=== PATIENT | female | born 1965 | race African-American/Black ===

== ENCOUNTER 2019-01-24 05:21 | Inpatient (IN) | payer OTHER ==
--- NOTE | 2019-01-18 18:22 | PREOPHP ---
DATE OF ADMISSION: 01/24/2019 The patient is to have surgery with Dr. Raf Baird on 01/24/2019. REASON FOR CONSULTATION: Consultation was requested by Dr. Raf Baird for medical evaluation and clearance of a 53-year-old woman about to undergo surgery. Thank you, Dr. Baird, for allowing us to participate in the care of this patient. HISTORY OF PRESENT ILLNESS: Brenda Maldonado, a 53-year-old woman, issues with her back, is current ly being admitted for correction of the above. PAST MEDICAL HISTORY AND PAST SURGICAL HISTORY: She had 3 vaginal deliveries in the past, has had no medical hospitalizations and had total hip replacement of the right hip in 2017. She otherwise has not broken any bones, has been relatively healthy. MEDICATIONS: She is taking the following medications: 1. Amlodipine 10 mg b.i.d. 2. Losartan 50 mg b.i.d. 3. Inderal 10 mg b.i.d. 4. Lipitor 20 mg a day. 5. Gabapentin 300 mg t.i.d. 6. Cymbalta 30 mg daily. 7. Trazodone 50 mg at bedtime. 8. She has stopped her meloxicam 15 mg which she had been taking. ALLERGIES: SHE IS ALLERGIC TO SULFA. SOCIAL HISTORY: The patient is , has 3 sons and 1 grandchild. She does not smoke. Alcohol s ocially. Does not drink coffee. 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 Has no difficulty sleeping at night. FAMILY HISTORY: Both parents are alive. Father is 80, mother 78, both in relatively good health to her knowledge. Seven siblings in good health. One has kidney issues. There is, however, a family h istory of diabetes, hypertension and stroke. REVIEW OF SYSTEMS HEENT: Periodic tension headaches. CARDIORESPIRATORY: Denies any chest pain or shortness of breath. GASTROINTESTINAL: No melena or hematemesis. Does have some hyperacidity symptoms periodically. GENITOURINARY: No urgency, frequency. GYNECOLOGIC: Postmenopause, up-to-date. MUSCULOSKELETAL: Positive for back problems. NEUROPSYCHIATRIC: Unremarkable. GENERAL HEALTH: As above. PHYSICAL EXAMINATION: VITAL SIGNS: The patient's blood pressure was 124/82, pulse was 67 and regular, respirations were 18 , temperature 98.3. Height is 5 feet 4 inches, weight 230.5 pounds. GENERAL: The patient was noted to be a well-developed, well-nourished female, alert and cooperative, in no apparent acute distress, oriented to time, place and person. HEENT: Head was atraumatic. Eyes: Pupils were equal, reactive to light and accommodation. Fundi w ere benign. Tympanic membranes were unremarkable. Nose was negative. Mouth was unremarkable. Fair oral hygiene was present. NECK: Supple without any rigidity. Trachea was midline. Thyroid was within normal limits. Neck ve ins were flat. Carotid pulses were equal. No bruits were heard. BACK: Unremarkable. CHEST: Symmetrical. BREASTS AND AXILLARY: Exam not fully examined, but no obvious masses were noted. LUNGS: Clear to percussion and auscultation. HEART: PMI was 5th intercostal space at the midclavicular line. A regular sinus rhythm was noted. No significant murmurs, rubs or gallops being elicited. ABDOMEN: Soft. Good bowel sounds were noted. No significant organomegaly, masses or tenderness. GENITALIA AND PELVIRECTAL: Up-to-date per cylinder valve repairer. EXTREMITIES: Did not reveal any clubbing, edema or cyanosis. Peripheral pulses were physiologic. SKIN: Moist and warm without any eruptions. No gross lymphadenopathy was noted. NEUROLOGIC: Grossly intact. IMPRESSION 1. Lumbar disk disease particularly L4 to L5. 2. Hypertension. 3. Hyperlipidemia. 4. Post-menopause. 5. Chronic pain syndrome. 6. Stable health. REVIEW OF LABORATORY AND OTHER DATA: Revealed the following: The patient's chemistry panel revealed normal electrolytes. Random glucose was 106. BUN, creatinine, calcium, uric acid, proteins were no rmal. Liver function tests were normal. Alkaline phosphatase was elevated at 143. CBC, UA, PT and PTT were normal. The patient's EKG revealed some nonspecific ST-T wave changes, no acute changes wer e noted and the patient's chest x-ray revealed minor degenerative changes, no acute infiltrates being noted. DISCUSSION: Dr. Baird, I see no contraindication to this patient undergoing current proposed surg cecy under desired form of anesthesia. I feel she is a suitable candidate at this particular point in time and we will be more than happy to follow her with you during her stay at [facility]. Thank you again, Dr. Baird, for allowing us to participate in the care of this patient. Dictated By: RAHUL KATE MD SS/ROMANA Conf#: [id number] DID#: [id number] CC: RAF BAIRD MD;*EndCC*
[2019-01-20 19:03] VITALS: Ht 165.1 cm; Wt 104.5 kg
[2019-01-24] VITALS (23 sets, daily range): BP systolic 95–124; BP diastolic 49–87; PULSE 72–96; RESP 13–23
[~2019-01-24] VITALS: Ht 165.1 cm; Wt 104.5 kg
[~2019-01-24 05:21] MED LIST: AMLO5TAB4 PO; ASPI-817 PO; ATOR20TA38 PO; DULO30CA47 PO; GABA300C16 PO; LOSA50TA14 PO; MELO7.5O PO; PREVAGEN PO; PROP10TA6 PO; TRAZ-111 PO
[2019-01-24] MEDS ORDERED: CEFAZOLIN 2 GM/50 ML (PMX) 50 ML IVPB ONE ×2 (06:45→07:00)
[2019-01-24] MEDS ORDERED: LACTATED RINGER'S 1,000 ML IV SCH (06:45)
--- NOTE | 2019-01-24 06:51 | PREAC ---
Date/Time of Note Date/Time of Note DATE: 01/24/19 TIME: 06:48 Anesthesia Eval and Record Evaluation Time Pre-Procedure Interview DATE: 01/24/19 TIME: 06:48 Age 53 Sex female NPO: 8 hrs Preoperative diagnosis lumbar stenosis Planned procedure L4 L5 laminectomy Past Medical History Past Medical History: Includes Cardio: HTN, Dyslipidemia, Arrythmia GI: Obesity Surgery & Anesthesia Issues No known issue Meds Anticoagulation: No Beta Eugenio within 24 hr: No Reason Beta Eugenio not given: Pt. not on B-Eugenio Reported Medications [Prevagen] No Conflict Check, 20 MG PO DAILY 01/20/19 Trazodone Hcl* (Trazodone Hcl*) 50 Mg Tablet, 50 MG PO QHS, #30 TAB 01/20/19 Duloxetine Hcl* (Duloxetine Hcl*) 30 Mg Capsule.dr, 30 MG PO DAILY, #30 CAP 01/20/19 Gabapentin* (Gabapentin*) 300 Mg Capsule, 300 MG PO TID, #90 CAP 01/20/19 Meloxicam* (Meloxicam*) 7.5 Mg/5 Ml Oral.susp, 15 MG PO DAILY PRN for PAIN, #300 ML 01/20/19 Aspirin* (Aspirin* EC) 81 Mg Tablet.dr, 81 MG PO DAILY, TAB 01/20/19 Atorvastatin Calcium* (Atorvastatin Calcium*) 20 Mg Tablet, 20 MG PO QHS, #30 TAB 01/20/19 Propranolol Hcl* (Propranolol Hcl*) 10 Mg Tablet, 10 MG PO BID, TAB 01/20/19 Losartan Potassium* (Losartan Potassium*) 50 Mg Tablet, 50 MG PO BID, TAB 01/20/19 Amlodipine Besylate* (Norvasc*) 5 Mg Tablet, 5 MG PO BID, TAB 01/20/19 Current Medications Cefazolin Sodium/ Dextrose 50 ml @ 100 mls/hr ONCE ONCE IVPB ; Start 01/24/19 at 06:45; Stop 01/24/19 at 07:14 Lactated Ringer's 1,000 ml @ 20 mls/hr Q24H IV ; Start 01/24/19 at 06:45; Stop 01/26/19 at 08:44 Lactated Ringer's 1,000 ml @ 20 mls/hr Q24H IV ; Start 01/24/19 at 06:45; Stop 01/26/19 at 08:44 Meds reviewed: Yes Allergies Coded Allergies: Sulfa (Sulfonamide Antibiotics) (Verified Allergy, Unknown, 01/24/19) shellfish derived (Verified Allergy, Unknown, HIVES, THROAT CLOSED, 01/24/19) shrimp (Verified Allergy, Unknown, HIVES, THROAT CLOSED, 01/24/19) Allergies Reviewed: Yes Labs/Studies Labs Reviewed: Reviewed by anesthesiologist Blood Bank Test 01/24/19 06:25 Blood Product Summary Counts test: N/A Pre-procedure Exam Last vitals Vital Signs Date Temp Pulse Resp B/P (MAP) Pulse Ox O2 O2 Flow FiO2 Time Delivery Rate 01/24/19 98.1 72 18 113/68 98 Room Air 06:27 (83) Airway: Adequate mouth opening, Adequate thyromental dist Mallampati: Mallampati IV Teeth: Normal Lung: Normal Heart: Normal ASA Physical Status ASA physical status: 2 Emergency: None Pre-operative Attestations Prior to commencing anesthesia and surgery, the patient was re-evaluated, there was verification of: *The patient's identity *The results of appropriate recent lab work and preoperative vital signs *The above evaluation not changing prior to induction *Anesthetic plan, risk benefits, alternative and complications discussed with patient/family; questions answered; patient/family understands, accepts and wishes to proceed. ITALO KNOX DO January 24, 2019 06:51
[2019-01-24] MEDS ORDERED: BUPIVACAINE 0.25% (MPF) 30 ML INJ ONE (06:52)
[2019-01-24] MEDS ORDERED: THROMBIN 5000 UNIT VIAL ONE (06:52)
[2019-01-24] MEDS ORDERED: GELATIN SIZE 100 SPONGE ONE (06:52)
[2019-01-24] MEDS: LACTATED RINGER'S 1,000 ML IV SCH ×2 (06:56→06:57)
[2019-01-24] MEDS ORDERED: LIDOCAINE 1% (MDV) 20 ML INJ ONE (06:56)
[2019-01-24] MEDS ORDERED: MIDAZOLAM 1 MG/ML 2 ML INJ ONE (06:56)
[2019-01-24] MEDS ORDERED: PROPOFOL 20 ML ONE (06:56)
[2019-01-24] MEDS ORDERED: SUCCINYLCHOLINE CHLORIDE 100 MG/5 ML SYG IV ONE (06:56)
[2019-01-24] MEDS ORDERED: HYDROmorphONE 1 MG/5 ML IV SYRINGE IV PRN ×2 (07:00)
[2019-01-24] MEDS ORDERED: ROCURONIUM 50 MG INJ ONE (07:00)
[2019-01-24] MEDS ORDERED: hydrALAzine 20 MG INJ IV PRN (07:00)
[2019-01-24] MEDS ORDERED: EPHEDrine 25 MG/5 ML SYG ONE (07:00)
[2019-01-24] MEDS ORDERED: ONDANSETRON 4 MG INJ IV PRN ×2 (07:00→11:30)
[2019-01-24] MEDS ORDERED: MEPERIDINE 25 MG INJ IV PRN (07:00)
[2019-01-24] MEDS ORDERED: LABETALOL HCL 20MG INJ IV PRN (07:00)
--- NOTE | 2019-01-24 07:01 | HPN ---
Date/Time of Note Date/Time of Note DATE: 01/24/19 TIME: 07:01 Interval H&P Admission Note Pt. seen H&P reviewed: No system changes WILLIE BAIRD MD January 24, 2019 07:01
[2019-01-24] MEDS ORDERED: ONDANSETRON 4 MG INJ ONE (07:10)
[2019-01-24] MEDS ORDERED: DEXAMETHASONE 4 MG/ML 5 ML INJ ONE (07:10)
[2019-01-24] MEDS ORDERED: PHENYLephrine (100 MCG/ML) 10ML SYG ONE ×2 (07:20→07:34)
[2019-01-24] MEDS ORDERED: VASOPRESSIN 20 UNITS INJ ONE (07:35)
[2019-01-24] MEDS ORDERED: POLYMYXIN/BACITRACIN 1L IRRIG IRR ONE (08:23)
[2019-01-24] MEDS ORDERED: SUGAMMADEX SODIUM 200 MG/2 ML VIAL IV ONE (09:31)
--- NOTE | 2019-01-24 09:49 | PAC ---
Date/Time of Note Date/Time of Note DATE: 01/24/19 TIME: 09:48 Post-Anesthesia Notes Post-Anesthesia Note Last documented vital signs Vital Signs Date Temp Pulse Resp B/P (MAP) Pulse Ox O2 O2 Flow FiO2 Time Delivery Rate 01/24/19 98 75 20 97/60 98 Room Air 0948 Activity: WNL Respiratory function: WNL Cardiovascular function: WNL Mental status: Baseline Pain reasonably controlled: Yes Hydration appropriate: Yes Nausea/Vomiting absent: Yes ITALO KNOX DO January 24, 2019 09:49
[2019-01-24] MEDS: HYDROmorphONE 1 MG/5 ML IV SYRINGE IV PRN ×2 (09:54→10:21)
[2019-01-24] MEDS ORDERED: HYDROmorphONE 0.2 MG/ML PCA IV SCH ×2 (10:30→11:30)
--- NOTE | 2019-01-24 11:12 | SIPON ---
Date/Time of Note Date/Time of Note DATE: 01/24/19 TIME: 11:10 Operative Report Preoperative Diagnosis Lumbar spinal stenosis at L4 and epidural lipomatosis at L5-S1 Postoperative Diagnosis Same Operation/Procedure Performed Central decompressive laminectomy at L4 Central decompressive laminectomy at L5 Excisional biopsy of epidural lipomatosis L5-S1 Medial facetectomy and foraminotomy L4-5 and L5-S1 Cosmetic wound closure (6 cm) Lateral localizing lumbar radiographs (3) Intraoperative nerve monitoring (3 hours) Surgeon see signature line licensed nursing assistant Genny BOLESA Anesthesia: general Estimated blood loss: 50 - 100 ml's Transfusion Required none Specimen Spinous processes of L4 and L5 Epidural fat Grafts/Implants none Complications none WILLIE BAIRD MD January 24, 2019 11:12
[2019-01-24] MEDS ORDERED: AL HYDROX/MG HYDROX/SIMETH 30 ML CUP PO PRN (11:30)
[2019-01-24] MEDS ORDERED: HYDROCODONE/APAP (5/325) TAB PO PRN (11:30)
[2019-01-24] MEDS ORDERED: NALOXONE (0.4 MG/ML) INJ IV PRN (11:30)
[2019-01-24] MEDS ORDERED: BETHANECHOL 25 MG TAB PO PRN (11:30)
[2019-01-24] MEDS ORDERED: DIAZEPAM 5 MG/ML SYG IM PRN (11:30)
[2019-01-24] MEDS ORDERED: ACETAMINOPHEN 325 MG TAB PO PRN (11:30)
[2019-01-24] MEDS ORDERED: TRIMETHOBENZAMIDE 100 MG/ML VIAL IM PRN (11:30)
[2019-01-24] MEDS ORDERED: ZOLPIDEM 5 MG TAB PO PRN (11:30)
[2019-01-24] MEDS ORDERED: PROCHLORPERAZINE 10 MG TAB PO PRN (11:30)
[2019-01-24] MEDS ORDERED: NACL 0.9% 3 ML SYG IV SCH (11:30)
[2019-01-24] MEDS: DEXTROSE 5%-0.45% NACL 1,000 ML IV SCH ×2 (12:34→21:35)
[2019-01-24] MEDS: CEFAZOLIN 1 GM/50 ML (PMX) 50 ML IVPB SCH ×2 (12:43→18:31)
[2019-01-24] MEDS: DIPHENHYDRAMINE 50 MG CAP PO PRN ×2 (12:58→21:52)
--- NOTE | 2019-01-24 13:36 | OPR ---
DATE OF OPERATION: 01/24/2019 PREOPERATIVE DIAGNOSES: 1. Lumbar spinal stenosis at L4. 2. Epidural lipomatosis at L5 to S1. POSTOPERATIVE DIAGNOSES: 1. Lumbar spinal stenosis at L4. 2. Epidural lipomatosis at L5 to S1. OPERATIVE PROCEDURES: 1. Central decompressive laminectomy at L4. 2. Central decompressive laminectomy at L5. 3. Excisional biopsy of epidural fat, L5 to S1. 4. Medial facetectomy and foraminotomy, L4 to L5 and L5 to S1 bilaterally. 5. Cosmetic wound closure (6 cm). 6. Lateral localized lumbar radiographs (3). 7. Intraoperative nerve monitoring (3 hours). SURGEON: Raf Ontiveros MD METALLURGICAL LAB TECHNICIAN: THOMAS Phillips ANESTHESIA: General endotracheal. ANESTHESIOLOGIST: Michael New DO ESTIMATED BLOOD LOSS: 70 mL - none replaced. DRAINS: Two medium Hemovac drains employed. COMPLICATIONS: None. PERTINENT HISTORY AND PHYSICAL: This is a 53-year-old female with persistent back and lower extremit y complaints which have been unrelieved by conservative management. 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 She has had extensive care sin ce that time, has remained symptomatic with persistent back and lower extremity pain and numbness whi ch has been unrelieved by conservative management. She has undergone a number of diagnostic studies including an MRI of the lumbar spine, which demonstrated some lateral recess stenosis at L4 along wit h epidural lipomatosis at L5 to S1. Treatment options were discussed with the patient, she elected t o proceed with surgery. OPERATIVE FINDINGS AT SURGERY: Moderate central and lateral recess stenosis at L4 to L5 was confirme d and moderate degree of epidural lipomatosis at L5 to S1. The baseline intraoperative nerve monitor ing revealed decrease in the L5 potentials bilaterally of 40% and the S1 potentials bilaterally of 20 %. These all returned to normal at the completion of the surgery. OPERATIVE PROCEDURE IN DETAILS: With the patient in supine position after satisfactory induction of general endotracheal anesthesia by Dr. New, the patient was turned to the prone kneeling positio n onto the [place] frame. All pressure points were carefully padded. Back was prepped and draped i n usual sterile fashion. Athrombic pumps were applied to the legs below the knees to prevent venous stasis during and after procedure. An indwelling Holguin catheter was also placed preoperatively to fa cilitate bladder drainage during and after procedure. Two spinal needles were placed next to what wa s felt to be the L4 and L5 spinous processes. Lateral roentgenogram was taken which confirmed anatom ic localization. A 6 cm incision then carried out midline from L4 to the sacrum through skin and sub cutaneous tissue to deep fascia. Superficial retractors were placed and hemostasis was secured with electrocautery. The fascia was incised in midline with a hot knife and bilateral subperiosteal disse ction was carried out from L4 to the sacrum. Deep retractors were placed and deep hemostasis was sec ured with electrocautery. A second intraoperative radiograph was taken with Rush clamps placed in what was felt to be the spinous process of L4 and L5. However, the radiologist was unable to confirm anatomic localization and a third x-ray was taken which was confirmed at L4 and L5. A central decom pressive laminectomy at L4 and L5 was then carried out using a [place] right-angle bone rongeur, Barbara ell rongeur, Kerrison punches and curettes. Ligamentum flavum was excised with sharp dissection. e operating microscope was then moved into place. Medial facetectomy and foraminotomy was accomplish ed at L4 to L5 and L5 to S1 bilaterally using small hand osteotome and mallet, Kerrison punches and c urettes. There was a moderate degree of epidural lipomatosis at L5 to S1 and this was peeled off of the dura and the S1 nerve root with a [place] dissector and sent to laboratory for pathologic analysi s. The epidural hemostasis was secured with bipolar electrocautery on low setting. The anesthesiolo gist was then asked to perform a Valsalva maneuver at 40 mmHg and no spinal fluid leak was noted. e wound was then closed in layers over 2 medium Hemovac drains, one below the fascia, one above the f ascia using #1 Stratafix sutures in deep paralumbar musculature and deep fascia of back, 2-0 Vicryl s utures and 2-0 Stratafix sutures on the subcutaneous tissue and a 4-0 Maxon subcuticular cosmetic julio sing suture on the skin. Dermabond and sterile compressive dressings were applied. The patient havi ng tolerated procedure well, was then turned to the supine position onto her bed and extubated by Dr. New. She was transported to the recovery room in satisfactory condition. At the conclusion of the procedure, sponge, instrument and needle counts were all correct. 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 My kindergarten teacher assistant also employed the suction catheters to clint luis e blood from the surgical field to improve visualization of the neural structures. The kindergarten teacher assistant was medically necessary to facilitate the completion of the surgery in a safe and expeditious manner. [facility] [place] regulations, as well as hospital bylaws, preclude the use of non-licensed health care personnel such as operating room technicians, to perform these functions. Throughout the procedure, neural monitoring was carried out by Reocar including EMG, SSEP a nd MEP monitoring of the L3, L4, L5 and S1 nerve roots bilaterally along with spinal cord potentials. These were interpreted in real time by Dr. Jamil Méndez. Dictated By: RAF ONTIVEROS MD TM/NTS Conf#: [id number] DID#: [id number] CC: RAHUL KATE MD;*EndCC*
--- NOTE | 2019-01-24 17:20 | PN ---
Date/Time of Note Date/Time of Note DATE: 01/24/19 TIME: 17:17 Assessment/Plan VTE Prophylaxis SCD applied (from Nsg): Yes Pharmacological prophylaxis: heparin Lines/Catheters IV Catheter Type (from Nrsg): Peripheral IV Urinary Cath still in place: Yes Reason Cath still needed: other (indicate) (Immediately postop, comes out first thing in the morning) Assessment/Plan Problems: (1) S/P lumbar laminectomy Onset Date: ~ 01/24/2019 Status: Acute Comment: Doing well postop with the exception of the pruritus from the analgesia. Continue treatment with expectation of good rehabilitation potential (2) Essential hypertension Status: Chronic Comment: Continue with outpatient medication regimen. (3) Hyperlipidemia Status: Chronic Comment: Continue with statin therapy Qualifiers: Hyperlipidemia type: pure hypercholesterolemia Qualified Codes: E78.00 - Pure hypercholesterolemia, unspecified (4) Chronic pain syndrome Status: Chronic Comment: Continue with gabapentin and duloxetine CC: WILLIE BAIRD MD ; Subjective 24 Hr Interval Summary Free Text/Dictation Colleen -Bel[place]ian female reports that she is having a great deal of itching after the narcotic analgesia. Constitutional: no complaints ENT: no complaints Respiratory: no complaints Cardiovascular: no complaints Gastrointestinal: no complaints Genitourinary: no complaints Musculoskeletal: back pain Skin: no complaints Neurologic: no complaints Exam/Review of Systems Exam Vitals Vital Signs Date Temp Pulse Resp B/P (MAP) Pulse Ox O2 O2 Flow FiO2 Time Delivery Rate 01/24/19 Nasal 2.0 13:34 Cannula 01/24/19 18 13:00 01/24/19 98.5 92 99/50 (66) 95 11:00 Exam Vibrant well spoken woman in bed with her at the bedside Constitutional: alert, oriented Head: normocephalic, atraumatic Neck: supple, non-tender Respiratory: clear to auscultation, normal air movement Cardiovascular: regular rate and rhythm, nl pulses Gastrointestinal: soft, nl liver, spleen, non-tender Medications Medication Current Medications Lactated Ringer's 1,000 ml @ 20 mls/hr Q24H IV Last administered on 01/24/19at 06:57; Admin Dose 20 MLS/HR; Start 01/24/19 at 06:45; Stop 01/26/19 at 08:44 Dextrose/Sodium Chloride 1,000 ml @ 100 mls/hr Q10H IV Last administered on 01/24/19at 12:34; Admin Dose 100 MLS/HR; Start 01/24/19 at 11:07 Acetaminophen/ Hydrocodone Bitart ([place] (5/325)) 1 tab Q4H PRN PO .PAIN 1-5; Start 01/24/19 at 11:30; Status Hold Acetaminophen/ Hydrocodone Bitart ([place] (5/325)) 2 tab Q4H PRN PO .PAIN 6-10; Start 01/24/19 at 11:30; Status Hold Cefazolin Sodium 50 ml @ 100 mls/hr Q6 IVPB Last administered on 01/24/19at 12:43; Admin Dose 100 MLS/HR; Start 01/24/19 at 12:00; Stop 01/25/19 at 06:29 Zolpidem Tartrate (Ambien) 5 mg HS PRN PO .INSOMNIA; Start 01/24/19 at 11:30 Prochlorperazine (Compazine) 10 mg Q4H PRN PO NAUSEA/VOMITING; Start 01/24/19 at 11:30 Trimethobenzamide HCl (Tigan) 200 mg Q4H PRN IM NAUSEA/VOMITING; Start 01/24/19 at 11:30 Ondansetron HCl (Zofran Inj) 4 mg Q6H PRN IV NAUSEA/VOMITING; Start 01/24/19 at 11:30 Al Hydrox/Mg Hydrox/Simethicone (Mag-Al Plus) 15 ml Q4H PRN PO .CONSTIPATION; Start 01/24/19 at 11:30 Docusate Sodium (Colace) 100 mg BID PO ; Start 01/25/19 at 09:00 Acetaminophen (Tylenol Tab) 650 mg Q4H PRN PO TEMP GREATER THAN 101F OR MARTINEZ; Start 01/24/19 at 11:30 Ascorbic Acid (Vitamin C) 1,000 mg BID PO ; Start 01/25/19 at 09:00 Ferrous Sulfate (Ferrous Sulfate (Ec)) 325 mg TID PO ; Start 01/25/19 at 09:00 Ranitidine HCl (Zantac) 150 mg BID PO ; Start 01/24/19 at 21:00 Diazepam (Valium) 5 mg Q4H PRN PO .MUSCLE SPASM; Start 01/24/19 at 11:30 Phenol (Cepastat Lozenge) 1 lozenge PRN PRN MT .SORE THROAT; Start 01/24/19 at 11:30 Bethanechol Chloride (Urecholine) 25 mg PRN PRN PO .UNABLE TO VOID; Start 01/24/19 at 11:30 Diphenhydramine HCl (Benadryl) 50 mg Q6H PRN PO .PRURITUS Last administered on 01/24/19at 12:58; Admin Dose 50 MG; Start 01/24/19 at 11:30 IV Flush (NS 3 ml) 3 ml PER PROTOCOL IV ; Start 01/24/19 at 11:30 Hydromorphone HCl (Dilaudid NOISE TESTER) Q4PCA IV ; Start 01/24/19 at 11:30 Naloxone HCl (Narcan) 0.2 mg Q2M PRN IV RR 8 BREATHS/MIN OR LESS; Start 01/24/19 at 11:30 MONTY WELLER MD January 24, 2019 17:20
[2019-01-24] MEDS ORDERED: DIPHENHYDRAMINE 50 MG INJ IV ONE (18:30)
[2019-01-24] MEDS: GABAPENTIN 300 MG CAP PO SCH (21:34)
[2019-01-24] MEDS: AMLODIPINE 5 MG TAB PO SCH (21:34)
[2019-01-24] MEDS: RANITIDINE 150 MG TAB PO SCH (21:34)
[2019-01-24] MEDS: ATORVASTATIN 20 MG TAB PO SCH (21:34)
[2019-01-24] MEDS: PROPRANOLOL 10 MG TAB PO SCH (21:35)
[2019-01-24] MEDS: LOSARTAN 50 MG TAB PO SCH (21:35)
[2019-01-24] MEDS: CEPASTAT LOZENGE MT PRN (21:52)
[2019-01-24] MEDS: traZODone 50 MG TAB PO SCH (21:52)
[2019-01-25 00:07] VITALS: BP 117/77; PULSE 96; RESP 18
[2019-01-25] MEDS: CEFAZOLIN 1 GM/50 ML (PMX) 50 ML IVPB SCH ×2 (00:31→05:33)
[2019-01-25 04:15] VITALS: BP 109/75; PULSE 80; RESP 18
[2019-01-25] MEDS: DIPHENHYDRAMINE 50 MG CAP PO PRN ×3 (05:33→20:13)
--- NOTE | 2019-01-25 07:11 | PN ---
Date/Time of Note Date/Time of Note DATE: 01/25/19 TIME: 07:06 Assessment/Plan Lines/Catheters IV Catheter Type (from Nrs): Peripheral IV Holguin in Place (from Nrs): Yes Subjective 24 Hr Interval Summary The patient is postop day #1 following a compressive laminectomy at L4 and L5. She is resting comfortably in bed, however she has some pruritus from her medi cations. She is afebrile. Neurovascular structures are intact distally. A.m. lab work is unremarkable except for a postop anemia (hemoglobin 9.8). Since she had minimal blood loss and surgery (75 cc), I suspect that it is due to hemodilution. She has a Holguin catheter in place. Her Hemovac output was 45 cc since last night, and will be kept in place. We will discontinue her Holguin catheter, and mobilize her as tolerated with physical therapy. She may be able to be discharged this afternoon, if cleared by physical therapy. Exam/Review of Systems Vital Signs Vitals Vital Signs Date Temp Pulse Resp B/P (MAP) Pulse Ox O2 O2 Flow FiO2 Time Delivery Rate 01/25/19 18 05:30 01/25/19 98.2 80 109/75 94 04:15 (86) 01/24/19 Nasal 2.0 20:00 Cannula Intake and Output 01/24/19 01/24/19 01/25/19 1515:00 23:00 07:00 IntakeIntake Total 4150 ml 1050 ml 800 ml OutputOutput Total 485 ml 3290 ml 1645 ml BalanceBalance 3665 ml -2240 ml -845 ml Results Result Diagram: 01/25/19 0417 01/25/19 0417 WILLIE BAIRD MD January 25, 2019 07:11
[2019-01-25 07:55] VITALS: BP 99/70; PULSE 68; RESP 18
[2019-01-25] MEDS ORDERED: BETHANECHOL 25 MG TAB PO PRN (08:00)
[2019-01-25] MEDS: DEXTROSE 5%-0.45% NACL 1,000 ML IV SCH ×3 (09:32→20:19)
[2019-01-25] MEDS: AMLODIPINE 5 MG TAB PO SCH ×2 (09:36→20:40)
[2019-01-25] MEDS: ASCORBIC ACID 500 MG TAB PO SCH ×2 (09:36→20:12)
[2019-01-25] MEDS: RANITIDINE 150 MG TAB PO SCH ×2 (09:36→20:13)
[2019-01-25] MEDS: LOSARTAN 50 MG TAB PO SCH ×2 (09:36→20:40)
[2019-01-25] MEDS: DOCUSATE SODIUM 100 MG CAP PO SCH ×2 (09:36→20:12)
[2019-01-25] MEDS: GABAPENTIN 300 MG CAP PO SCH ×3 (09:37→20:13)
[2019-01-25] MEDS: PROPRANOLOL 10 MG TAB PO SCH ×2 (09:37→20:40)
[2019-01-25] MEDS: FERROUS SULFATE (EC) 325 MG TAB PO SCH ×3 (09:37→20:13)
[2019-01-25] MEDS: DULOXETINE 30 MG CAP DR PO SCH (09:37)
[2019-01-25] MEDS: HYDROCODONE/APAP (5/325) TAB PO PRN ×3 (09:58→21:13)
--- NOTE | 2019-01-25 19:15 | PN ---
Date/Time of Note Date/Time of Note DATE: 01/25/19 TIME: 19:14 Assessment/Plan VTE Prophylaxis Risk score (from Ns)>0 risk: 6 SCD applied (from Ns): Yes Pharmacological prophylaxis: heparin Lines/Catheters IV Catheter Type (from [facility]): Peripheral IV Urinary Cath still in place: No Assessment/Plan Problems: (1) S/P lumbar laminectomy Onset Date: ~ 01/24/2019 Status: Acute Comment: Progressing well after surgery without complications. Possible discharge in morning (2) Essential hypertension Status: Chronic Comment: Adequate control at this time. Continue same (3) Hyperlipidemia Status: Chronic Comment: Adequate control at this time Qualifiers: Hyperlipidemia type: pure hypercholesterolemia Qualified Codes: E78.00 - Pure hypercholesterolemia, unspecified Result Diagram: 01/25/19 0417 01/25/19 0417 Results 24hrs Laboratory Tests Test 01/25/19 04:17 01/25/19 08:24 01/25/19 10:00 Hemoglobin 9.8 L Hematocrit 31.6 L Sodium Level 137 Potassium Level 4.2 Chloride Level 104 Carbon Dioxide Level 27 Anion Gap 6 Blood Urea Nitrogen 9 Creatinine 0.94 Est Glomerular Filtrat > 60 Rate mL/min Glucose Level 152 Calcium Level 8.8 Lab Scanned Report REFERENCE LAB Urine Color STRAW Urine Clarity CLEAR Urine pH 6.0 Urine Specific [place] 1.010 Urine Ketones NEGATIVE Urine Nitrite NEGATIVE Urine Bilirubin NEGATIVE Urine Urobilinogen NEGATIVE Urine Leukocyte Esterase 1+ H Urine Microscopic RBC 1 Urine Microscopic WBC 12 H Urine Hemoglobin NEGATIVE Urine Glucose NEGATIVE Urine Total Protein NEGATIVE Subjective 24 Hr Interval Summary Free Text/Dictation Patient still having a significant amount of pain but her pruritus has significantly reduced with adjustment of medicines Constitutional: no complaints Respiratory: no complaints Cardiovascular: no complaints Gastrointestinal: no complaints Musculoskeletal: back pain Exam/Review of Systems Exam Vitals Vital Signs Date Temp Pulse Resp B/P (MAP) Pulse Ox O2 O2 Flow FiO2 Time Delivery Rate 01/25/19 18 09:56 01/25/19 98.4 68 99/70 (80) 97 Nasal 07:55 Cannula 01/24/19 2.0 20:00 Intake and Output 01/24/19 01/24/19 01/25/19 1515:00 23:00 07:00 IntakeIntake Total 4150 ml 1050 ml 800 ml OutputOutput Total 485 ml 3290 ml 1645 ml BalanceBalance 3665 ml -2240 ml -845 ml Constitutional: alert, oriented Neck: supple, non-tender Respiratory: clear to auscultation, normal air movement Cardiovascular: regular rate and rhythm, nl pulses Results Results 24hrs Laboratory Tests Test 01/25/19 04:17 01/25/19 08:24 01/25/19 10:00 Hemoglobin 9.8 L Hematocrit 31.6 L Sodium Level 137 Potassium Level 4.2 Chloride Level 104 Carbon Dioxide Level 27 Anion Gap 6 Blood Urea Nitrogen 9 Creatinine 0.94 Est Glomerular Filtrat > 60 Rate mL/min Glucose Level 152 Calcium Level 8.8 Lab Scanned Report REFERENCE LAB Urine Color STRAW Urine Clarity CLEAR Urine pH 6.0 Urine Specific [place] 1.010 Urine Ketones NEGATIVE Urine Nitrite NEGATIVE Urine Bilirubin NEGATIVE Urine Urobilinogen NEGATIVE Urine Leukocyte Esterase 1+ H Urine Microscopic RBC 1 Urine Microscopic WBC 12 H Urine Hemoglobin NEGATIVE Urine Glucose NEGATIVE Urine Total Protein NEGATIVE Medications Medication Current Medications Lactated Ringer's 1,000 ml @ 20 mls/hr Q24H IV Last administered on 01/24/19at 06:57; Admin Dose 20 MLS/HR; Start 01/24/19 at 06:45; Stop 01/26/19 at 08:44 Dextrose/Sodium Chloride 1,000 ml @ 100 mls/hr Q10H IV Last administered on 01/25/19at 09:32; Admin Dose 100 MLS/HR; Start 01/24/19 at 11:07 Acetaminophen/ Hydrocodone Bitart ([place] (5/325)) 1 tab Q4H PRN PO .PAIN 1-5; Start 01/24/19 at 11:30 Acetaminophen/ Hydrocodone Bitart ([place] (5/325)) 2 tab Q4H PRN PO .PAIN 6-10 Last administered on 01/25/19at 17:13; Admin Dose 2 TAB; Start 01/24/19 at 11:30 Zolpidem Tartrate (Ambien) 5 mg HS PRN PO .INSOMNIA; Start 01/24/19 at 11:30 Prochlorperazine (Compazine) 10 mg Q4H PRN PO NAUSEA/VOMITING; Start 01/24/19 at 11:30 Trimethobenzamide HCl (Tigan) 200 mg Q4H PRN IM NAUSEA/VOMITING; Start 01/24/19 at 11:30 Ondansetron HCl (Zofran Inj) 4 mg Q6H PRN IV NAUSEA/VOMITING; Start 01/24/19 at 11:30 Al Hydrox/Mg Hydrox/Simethicone (Mag-Al Plus) 15 ml Q4H PRN PO .CONSTIPATION; Start 01/24/19 at 11:30 Docusate Sodium (Colace) 100 mg BID PO Last administered on 01/25/19 09:36; Admin Dose 100 MG; Start 01/25/19 at 09:00 Acetaminophen (Tylenol Tab) 650 mg Q4H PRN PO TEMP GREATER THAN 101F OR MARTINEZ; Start 01/24/19 at 11:30 Ascorbic Acid (Vitamin C) 1,000 mg BID PO Last administered on 01/25/19 09:36; Admin Dose 1,000 MG; Start 01/25/19 at 09:00 Ferrous Sulfate (Ferrous Sulfate (Ec)) 325 mg TID PO Last administered on 01/25/19 12:35; Admin Dose 325 MG; Start 01/25/19 at 09:00 Ranitidine HCl (Zantac) 150 mg BID PO Last administered on 01/25/19 09:36; Admin Dose 150 MG; Start 01/24/19 at 21:00 Diazepam (Valium) 5 mg Q4H PRN PO .MUSCLE SPASM; Start 01/24/19 at 11:30 Phenol (Cepastat Lozenge) 1 lozenge PRN PRN MT .SORE THROAT Last administered on 01/24/19at 21:52; Admin Dose 1 LOZENGE; Start 01/24/19 at 11:30 Diphenhydramine HCl (Benadryl) 50 mg Q6H PRN PO .PRURITUS Last administered on 01/25/19at 13:48; Admin Dose 50 MG; Start 01/24/19 at 11:30 IV Flush (NS 3 ml) 3 ml PER PROTOCOL IV ; Start 01/24/19 at 11:30 Naloxone HCl (Narcan) 0.2 mg Q2M PRN IV RR 8 BREATHS/MIN OR LESS; Start 01/24/19 at 11:30 Amlodipine Besylate (Norvasc) 5 mg BID PO Last administered on 01/25/19 09:36; Admin Dose 5 MG; Start 01/24/19 at 21:00 Atorvastatin Calcium (Lipitor) 20 mg QHS PO Last administered on 01/24/19 21:34; Admin Dose 20 MG; Start 01/24/19 at 21:00 Duloxetine HCl (Cymbalta) 30 mg DAILY PO Last administered on 01/25/19 09:37; Admin Dose 30 MG; Start 01/25/19 at 09:00 Gabapentin (Neurontin) 300 mg TID PO Last administered on 01/25/19 12:35; Admin Dose 300 MG; Start 01/24/19 at 21:00 Losartan Potassium (Cozaar) 50 mg BID PO Last administered on 01/25/19 09:36; Admin Dose 50 MG; Start 01/24/19 at 21:00 Propranolol HCl (Inderal) 10 mg BID PO Last administered on 01/25/19 09:37; Admin Dose 10 MG; Start 01/24/19 at 21:00 Trazodone HCl (Desyrel) 50 mg QHS PO Last administered on 01/24/19 21:52; Admin Dose 50 MG; Start 01/24/19 at 21:00 Bethanechol Chloride (Urecholine) 25 mg PRN PRN PO UNABLE TO VOID Last administered on 01/25/19 09:58; Admin Dose 25 MG; Start 01/25/19 at 08:00 MONTY WELLER MD January 25, 2019 19:15
[2019-01-25] MEDS: ATORVASTATIN 20 MG TAB PO SCH (20:13)
[2019-01-25] MEDS: traZODone 50 MG TAB PO SCH (20:39)
[2019-01-25 20:40] VITALS: BP 110/60; PULSE 80; RESP 18
[2019-01-26 01:42] VITALS: BP 101/61; PULSE 72; RESP 18
[2019-01-26] MEDS: HYDROCODONE/APAP (5/325) TAB PO PRN ×3 (04:54→17:00)
[2019-01-26] MEDS: DIPHENHYDRAMINE 50 MG CAP PO PRN ×2 (05:01→11:50)
[2019-01-26] MEDS: CEPASTAT LOZENGE MT PRN (05:01)
[2019-01-26] MEDS: LACTATED RINGER'S 1,000 ML IV SCH (06:45)
[2019-01-26] MEDS: DIAZEPAM 5 MG TAB PO PRN ×3 (07:08→17:04)
--- NOTE | 2019-01-26 08:49 | PN ---
Date/Time of Note Date/Time of Note DATE: 01/26/19 TIME: 08:47 Assessment/Plan Lines/Catheters IV Catheter Type (from Nrsg): Peripheral IV Holguin in Place (from Nrsg): No Subjective 24 Hr Interval Summary The patient is postop day #2 following a compressive laminectomy at L4 and L5. She is sitting up in bed. She is afebrile vital signs are stable. Neurovascul ar structures are intact distally. Her Hemovac drain was removed yesterday. She is working with physical therapy and I anticipate she will be cleared for discharge later today. Discharge instructions reviewed with patient. Exam/Review of Systems Vital Signs Vitals Vital Signs Date Temp Pulse Resp B/P (MAP) Pulse Ox O2 O2 Flow FiO2 Time Delivery Rate 01/26/19 97.9 72 18 101/61 96 Nasal 2.0 01:42 (74) Cannula Intake and Output 01/25/19 01/25/19 01/26/19 1515:00 23:00 07:00 IntakeIntake Total 2200 ml 400 ml BalanceBalance 2200 ml 400 ml Results Result Diagram: 01/25/19 0417 01/25/19 0417 CARLOS ZAMUDIO January 26, 2019 08:49
[2019-01-26] MEDS: FERROUS SULFATE (EC) 325 MG TAB PO SCH ×2 (08:58→12:06)
[2019-01-26] MEDS: DOCUSATE SODIUM 100 MG CAP PO SCH (08:58)
[2019-01-26] MEDS: DULOXETINE 30 MG CAP DR PO SCH (08:58)
[2019-01-26] MEDS: RANITIDINE 150 MG TAB PO SCH (08:59)
[2019-01-26] MEDS: PROPRANOLOL 10 MG TAB PO SCH (09:01)
[2019-01-26] MEDS: GABAPENTIN 300 MG CAP PO SCH ×2 (09:02→12:06)
[2019-01-26] MEDS: LOSARTAN 50 MG TAB PO SCH (09:02)
[2019-01-26] MEDS: ASCORBIC ACID 500 MG TAB PO SCH (09:02)
[2019-01-26] MEDS: AMLODIPINE 5 MG TAB PO SCH (09:02)
[2019-01-26 09:06] VITALS: BP 100/60; PULSE 74; RESP 18
[2019-01-26 15:49] VITALS: BP 97/65; PULSE 60; RESP 18
--- NOTE | 2019-01-26 19:19 | PN ---
Date/Time of Note Date/Time of Note DATE: 01/26/19 TIME: 19:17 Assessment/Plan VTE Prophylaxis Risk score (from Ns)>0 risk: 8 SCD applied (from Ns): Yes SCD contraindicated: low risk/ambulating Pharmacological prophylaxis: heparin Pharm contraindication: low risk/ambulating Lines/Catheters IV Catheter Type (from Nrs): Peripheral IV Urinary Cath still in place: No Assessment/Plan Problems: (1) S/P lumbar laminectomy Onset Date: ~ 01/24/2019 Status: Acute Comment: Doing well postop and stable for discharge at this time (2) Essential hypertension Status: Chronic Comment: Adequate control on outpatient regimen (3) Hyperlipidemia Status: Chronic Comment: Adequate control Qualifiers: Hyperlipidemia type: pure hypercholesterolemia Qualified Codes: E78.00 - Pure hypercholesterolemia, unspecified (4) Chronic pain syndrome Status: Chronic Comment: Doing well. Overall prognosis is actually good Result Diagram: 01/25/19 0417 01/25/19 0417 Subjective 24 Hr Interval Summary Free Text/Dictation Patient reports she is doing well on her pain while still present is improved. She is working with physical therapy and is ready for discharge Respiratory: no complaints Cardiovascular: no complaints Gastrointestinal: no complaints Genitourinary: no complaints Exam/Review of Systems Exam Vitals Vital Signs Date Temp Pulse Resp B/P (MAP) Pulse Ox O2 O2 Flow FiO2 Time Delivery Rate 01/26/19 98.5 60 18 97/65 (76) 99 Room Air 15:49 01/26/19 2.0 01:42 Intake and Output 01/25/19 01/25/19 01/26/19 1515:00 23:00 07:00 IntakeIntake Total 2200 ml 400 ml BalanceBalance 2200 ml 400 ml Constitutional: alert, oriented Neck: supple, non-tender Respiratory: clear to auscultation, normal air movement Cardiovascular: regular rate and rhythm, nl pulses Medications Medication Current Medications Acetaminophen/ Hydrocodone Bitart ([place] (5/325)) 1 tab Q4H PRN PO .PAIN 1-5; Start 01/24/19 at 11:30 Acetaminophen/ Hydrocodone Bitart ([place] (5/325)) 2 tab Q4H PRN PO .PAIN 6-10 Last administered on 01/26/19at 17:00; Admin Dose 2 TAB; Start 01/24/19 at 11:30 Zolpidem Tartrate (Ambien) 5 mg HS PRN PO .INSOMNIA Last administered on 01/25/19at 23:26; Admin Dose 5 MG; Start 01/24/19 at 11:30 Prochlorperazine (Compazine) 10 mg Q4H PRN PO NAUSEA/VOMITING; Start 01/24/19 at 11:30 Trimethobenzamide HCl (Tigan) 200 mg Q4H PRN IM NAUSEA/VOMITING; Start 01/24/19 at 11:30 Ondansetron HCl (Zofran Inj) 4 mg Q6H PRN IV NAUSEA/VOMITING; Start 01/24/19 at 11:30 Al Hydrox/Mg Hydrox/Simethicone (Mag-Al Plus) 15 ml Q4H PRN PO .CONSTIPATION; Start 01/24/19 at 11:30 Docusate Sodium (Colace) 100 mg BID PO Last administered on 01/26/19at 08:58; Admin Dose 100 MG; Start 01/25/19 at 09:00 Acetaminophen (Tylenol Tab) 650 mg Q4H PRN PO TEMP GREATER THAN 101F OR MARTINEZ; Start 01/24/19 at 11:30 Ascorbic Acid (Vitamin C) 1,000 mg BID PO Last administered on 01/26/19at 09:02; Admin Dose 1,000 MG; Start 01/25/19 at 09:00 Ferrous Sulfate (Ferrous Sulfate (Ec)) 325 mg TID PO Last administered on 01/26/19at 12:06; Admin Dose 325 MG; Start 01/25/19 at 09:00 Ranitidine HCl (Zantac) 150 mg BID PO Last administered on 01/26/19at 08:59; Admin Dose 150 MG; Start 01/24/19 at 21:00 Diazepam (Valium) 5 mg Q4H PRN PO .MUSCLE SPASM Last administered on 01/26/19at 17:04; Admin Dose 5 MG; Start 01/24/19 at 11:30 Phenol (Cepastat Lozenge) 1 lozenge PRN PRN MT .SORE THROAT Last administered on 01/26/19 05:01; Admin Dose 1 LOZENGE; Start 01/24/19 at 11:30 Diphenhydramine HCl (Benadryl) 50 mg Q6H PRN PO .PRURITUS Last administered on 01/26/19 11:50; Admin Dose 50 MG; Start 01/24/19 at 11:30 IV Flush (NS 3 ml) 3 ml PER PROTOCOL IV ; Start 01/24/19 at 11:30 Naloxone HCl (Narcan) 0.2 mg Q2M PRN IV RR 8 BREATHS/MIN OR LESS; Start 01/24/19 at 11:30 Amlodipine Besylate (Norvasc) 5 mg BID PO Last administered on 01/26/19 09:02; Admin Dose 5 MG; Start 01/24/19 at 21:00 Atorvastatin Calcium (Lipitor) 20 mg QHS PO Last administered on 01/25/19 20:13; Admin Dose 20 MG; Start 01/24/19 at 21:00 Duloxetine HCl (Cymbalta) 30 mg DAILY PO Last administered on 01/26/19 08:58; Admin Dose 30 MG; Start 01/25/19 at 09:00 Gabapentin (Neurontin) 300 mg TID PO Last administered on 01/26/19 12:06; Admin Dose 300 MG; Start 01/24/19 at 21:00 Losartan Potassium (Cozaar) 50 mg BID PO Last administered on 01/26/19 09:02; Admin Dose 50 MG; Start 01/24/19 at 21:00 Propranolol HCl (Inderal) 10 mg BID PO Last administered on 01/26/19 09:01; Admin Dose 10 MG; Start 01/24/19 at 21:00 Trazodone HCl (Desyrel) 50 mg QHS PO Last administered on 01/25/19 20:39; Admin Dose 50 MG; Start 01/24/19 at 21:00 Bethanechol Chloride (Urecholine) 25 mg PRN PRN PO UNABLE TO VOID Last administered on 01/25/19 09:58; Admin Dose 25 MG; Start 01/25/19 at 08:00 MONTY WELLER MD January 26, 2019 19:19
== END 2019-01-26 19:28 | disposition home or self-care (01) | DRG 520 ==
LOC: REC 05:21 → MS1 12:04
PROVIDERS: ADMIT Orthopaedic Surgery; ATTEND Orthopaedic Surgery
PROC: 00BY0ZX Excision of Lumbar Spinal Cord, Open Approach, Diagnostic (ICD-10-PCS; 2019-01-24)
PROC: 4A11X4G Monitoring of Peripheral Nervous Electrical Activity, Intraoperative, External Approach (ICD-10-PCS; 2019-01-24)
PROC: 01NB0ZZ Release Lumbar Nerve, Open Approach (ICD-10-PCS; principal; 2019-01-24 07:00)
DX: M48.061 Spinal stenosis, lumbar region without neurogenic claudication (principal); E88.2 Lipomatosis, not elsewhere classified; I10 Essential (primary) hypertension; E78.5 Hyperlipidemia, unspecified; D64.9 Anemia, unspecified; Z78.0 Asymptomatic menopausal state; Z96.641 Presence of right artificial hip joint
CPT/HCPCS: 72020; 80048; 81001; 85014; 85018; 86850; 86900; 86901; 86920; 87086; 88304; 88311; 97110; 97116; 97162; 97530; J0690; J1100; J1170; J1200; J2175; J2250; J2370; J2405; J3010; J7042; J7120